=== PATIENT | female | born 1990 | race Hispanic/Latino ===

== ENCOUNTER 2025-05-11 10:07 | Emergency (ER) | payer MEDICAID, OTHER ==
[~2025-05-11] VITALS: Ht 147.3 cm; Wt 86.2 kg
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
[2025-05-11 11:56] VITALS: BP 129/75; PULSE 87; RESP 20; TEMP 98; O2SAT 99
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
== END 2025-05-11 12:02 | disposition home or self-care (01) ==
LOC: EDH 10:07 → EEVIPCON 10:07 → EDH 12:02
DX: S00.93XA Contusion of unspecified part of head, initial encounter (principal); R51.9 Headache, unspecified; Z79.899 Other long term (current) drug therapy; X58.XXXA Exposure to other specified factors, initial encounter; Z23 Encounter for immunization; Y93.89 Activity, other specified; Y92.89 Other specified places as the place of occurrence of the external cause; Y99.8 Other external cause status; Z02.89 Encounter for other administrative examinations
CPT/HCPCS: 70450; 90471; 90714; 99285